=== PATIENT | male | born 1950 | race Caucasian/White ===

== ENCOUNTER → 2023-09-03 06:21 | Day surgery (SDC) | payer MEDICARE, OTHER, SELFPAY | LOC: GI 06:21 | PROVIDERS: ATTENDING PHYSICIAN Surgery; FAMILY PHYSICIAN Family Medicine | DX: Z12.11 Encounter for screening for malignant neoplasm of colon (principal); Z86.010 Personal history of colon polyps; D12.0 Benign neoplasm of cecum; K64.9 Unspecified hemorrhoids | CPT/HCPCS: 45380; 88305 ==

== ENCOUNTER 2023-09-05 14:49 | Outpatient (RCR) | payer MEDICARE, OTHER, SELFPAY | END 2023-09-05 23:59 | disposition home or self-care (01) | LOC: RPT 14:49 | PROVIDERS: ATTENDING PHYSICIAN Specialist; FAMILY PHYSICIAN Family Medicine | DX: C61 Malignant neoplasm of prostate (principal); M62.89 Other specified disorders of muscle; K59.00 Constipation, unspecified; Z73.6 Limitation of activities due to disability | CPT/HCPCS: 97162; 97530 ==

== ENCOUNTER 2023-09-11 09:39 | Inpatient (IN) | payer MEDICARE, OTHER, SELFPAY ==
[2023-09-08 09:00] VITALS: BMI 27.0
[2023-09-08 09:51] LABS: Hematocrit 40.2 % (39.0-52.0); Hemoglobin 13.2 g/dL (13.0-18.0); Mean Corp Hgb Conc. 32.8 g/dL (33.0-37.0); Mean Corpuscular Volume 97.3 fL (80.0-94.0); Mean Platelet Volume 9.7 fL (7.4-10.4); Platelet Count 203 10^3/uL (130-400); Red Blood Cell Count 4.13 10^6/uL (4.70-6.10); Red Cell Dist. Width 13.9 % (11.5-14.5); White Blood Cell Count 4.8 10^3/uL (4.8-10.8)
[2023-09-08 09:52] LABS: Urine Albumin Negative (Neg - Trace); Urine Bilirubin Negative (Negative); Urine Character Clear (Clear); Urine Color Yellow; Urine Glucose Negative (Negative); Urine Ketone Negative (Negative); Urine Leukocyte Trace (Negative); Urine Nitrite Negative (Negative); Urine Occult Blood Negative (Negative); Urine Specific Gravity 1.015 (<1.030); Urine Urobilinogen Negative (Neg - 1+); Urine pH 6.5 (5.0-9.0)
[2023-09-08 10:16] LABS: INR 1.03; PT 13.3 Sec (11.4-14.6)
[2023-09-08 10:17] LABS: APTT 28.8 Sec (23.4-35.0)
[2023-09-08 10:23] LABS: Urine Mucus Few
[2023-09-08 10:24] LABS: Urine Squamous Cell 0-2 /LPF (Few)
[2023-09-08 10:25] LABS: Urine Red Blood Cell 0-2 /HPF (0-2)
[2023-09-08 11:36] LABS: Blood Urea Nitrogen 13 mg/dl (9-20); Calcium 9.4 mg/dl (8.4-10.2); Carbon Dioxide 25 mmol/L (22-30); Chloride 105 mmol/L (98-107); Estimated Creatinine Clearance 75 ml/min; Glucose 103 mg/dl (70-99); Potassium 4.2 mmol/L (3.5-5.1); Sodium 139 mmol/L (135-145); eGFR > 60.00
[2023-09-11] VITALS (22 sets, daily range): BP systolic 95–152; BP diastolic 47–98; BMI 27.0
[2023-09-11] MEDS: NORMOSOL-R 1000 IV ×2 (10:07→16:00)
[2023-09-11] MEDS: NEBCIN 480 MG/100 ML ENEMA 1 BOTTLE RECTAL (10:07)
--- NOTE | 2023-09-11 13:34 | W.IMMPOSTOP ---
Surgical Immed Post Op Note
-
Primary Surgeon: Devante
Assisting Surgeon: Rex
Pre-op Diagnosis: Prostate cancer
Post-op Diagnosis: Same
Procedure Performed: Radical perineal prostatectomy
Anesthesia Type: GET
Specimen / Cultures: Prostate with seminal vesicles, bladder neck and urethral margins
Estimated Blood Loss: 100 ml
Complications: None
--- NOTE | 2023-09-11 13:36 | W.IMMPOSTOP ---
Surgical Immed Post Op Note
-
Primary Surgeon:
Assisting Surgeon:
Pre-op Diagnosis:
Post-op Diagnosis:
Procedure Performed:
Anesthesia Type:
Specimen / Cultures:
Estimated Blood Loss:
Complications:
Operative Findings:
[2023-09-11 14:31] LABS: Hematocrit 37.1 % (39.0-52.0); Hemoglobin 12.2 g/dL (13.0-18.0)
[2023-09-11] MEDS: TORADOL 15 MG IV ×2 (14:43→22:26)
[2023-09-11 14:44] LABS: Blood Urea Nitrogen 14 mg/dl (9-20); Calcium 8.5 mg/dl (8.4-10.2); Carbon Dioxide 26 mmol/L (22-30); Chloride 105 mmol/L (98-107); Estimated Creatinine Clearance 68 ml/min; Glucose 136 mg/dl (70-99); Potassium 4.2 mmol/L (3.5-5.1); Sodium 134 mmol/L (135-145); eGFR > 60.00
[2023-09-11] MEDS: DILAUDID 0.25 MG IV ×2 (15:18→17:19)
[2023-09-11] MEDS: FIBERCON PO (22:18)
[2023-09-11] MEDS: LIPITOR 10 MG PO (22:24)
[2023-09-11] MEDS: NEURONTIN PO (22:24)
[2023-09-11] MEDS: COLACE PO (22:24)
[2023-09-11] MEDS: NEURONTIN 300 MG PO (22:24)
[2023-09-11] MEDS: PROTONIX 40 MG PO (22:25)
[2023-09-11] MEDS: POLYSPORIN OINTMENT 1 APPLIC TOPICAL (22:26)
[2023-09-11] MEDS: BENICAR 10 MG PO (22:30)
[2023-09-12] MEDS: NORMOSOL-R 1000 IV (01:31)
[2023-09-12 03:30] VITALS: BP 120/65
[2023-09-12] MEDS: TORADOL 15 MG IV ×4 (03:32→21:06)
[2023-09-12 06:32] LABS: Hematocrit 35.3 % (39.0-52.0); Hemoglobin 11.5 g/dL (13.0-18.0); Mean Corp Hgb Conc. 32.6 g/dL (33.0-37.0); Mean Corpuscular Hgb 31.4 pg (27.0-31.0); Mean Corpuscular Volume 96.4 fL (80.0-94.0); Mean Platelet Volume 9.8 fL (7.4-10.4); Platelet Count 193 10^3/uL (130-400); Red Blood Cell Count 3.66 10^6/uL (4.70-6.10); Red Cell Dist. Width 13.4 % (11.5-14.5); White Blood Cell Count 8.6 10^3/uL (4.8-10.8)
[2023-09-12 07:00] VITALS: BP 137/76
[2023-09-12 07:00] LABS: Blood Urea Nitrogen 20 mg/dl (9-20); Calcium 8.4 mg/dl (8.4-10.2); Carbon Dioxide 27 mmol/L (22-30); Chloride 106 mmol/L (98-107); Estimated Creatinine Clearance 52 ml/min; Glucose 95 mg/dl (70-99); Potassium 3.8 mmol/L (3.5-5.1); Sodium 135 mmol/L (135-145); eGFR 58.73
[2023-09-12 07:40] LABS: Hepatitis C Antibody Negative (Negative)
[2023-09-12] MEDS: PROTONIX 40 MG PO ×2 (08:29→21:04)
[2023-09-12] MEDS: NEURONTIN 300 MG PO ×4 (08:30→21:04)
[2023-09-12] MEDS: POLYSPORIN OINTMENT 1 APPLIC TOPICAL ×2 (08:31→21:06)
--- NOTE | 2023-09-12 09:00 | W.PN.UPDATE ---
Update Note
Progress Note Update
Stable 1 day s/p radical perineal prostatectomy
Tolerating diet
BM and flatus
Labs good
Incision clean
---
Anticipate discharge tomorrow
[2023-09-12] MEDS: TYLENOL 650 MG PO ×3 (09:13→17:49)
[2023-09-12] MEDS: COLACE PO ×3 (09:16→15:38)
[2023-09-12] MEDS: FIBERCON PO (09:16)
[2023-09-12 11:00] VITALS: BP 123/62
--- NOTE | 2023-09-12 12:21 | CM ---
Reviewed the chart notes and spoke with the patient at the bedside. The patient resides with his spouse in a two story home with one step down to enter. The patient reports no DME/VN/SNF. The patient confirmed his pharmacy of choice is the [facility] Her[facility]. The patient has been ordered VN. Discussed area VN agencies. Patient selected VN. Referral sent in [facility]. CM continues to be available to patient/family and is monitoring medical plan for needs at discharge.
Plan: Discharge to home with VN services.
[2023-09-12 15:00] VITALS: BP 102/51
[2023-09-12] MEDS: PAXIL 30 MG PO (15:38)
--- NOTE | 2023-09-12 15:49 | PTCARENOTE ---
Patients clint drain fell out when patient was going to the bathroom. Dr. Low made aware. Also inquired about Carbamazepine (patients on med). Dr. Low said patient can resume when he gets home. Patient made aware.
[2023-09-12] MEDS: BENICAR 10 MG PO (21:04)
[2023-09-12] MEDS: FIBERCON 1250 MG PO (21:05)
[2023-09-12] MEDS: LIPITOR 10 MG PO (21:05)
[2023-09-12 23:30] VITALS: BP 136/61
[2023-09-13 07:30] VITALS: BP 138/71
[2023-09-13] MEDS: PROTONIX 40 MG PO (08:02)
[2023-09-13] MEDS: NEURONTIN 300 MG PO (08:02)
[2023-09-13] MEDS: TYLENOL 650 MG PO (08:02)
[2023-09-13] MEDS: PAXIL 30 MG PO (08:03)
[2023-09-13] MEDS: COLACE 100 MG PO (08:03)
[2023-09-13] MEDS: POLYSPORIN OINTMENT 1 APPLIC TOPICAL (08:03)
[2023-09-13] MEDS: FIBERCON 1250 MG PO (08:03)
--- NOTE | 2023-09-13 11:04 | W.DCSUMMARY ---
Discharge Summary
Discharge Data
Date of Admission: 09/11/23
Date of Discharge: 09/13/23
-
Pending Results: Yes (pathology report)
Hospital Course
the pt has clinically localized prostate cancer he underent an uneventful radicalperineal prostatecmy He remained stable and ischeduled for d/c today
Discharge Plan
-
Patient Disposition: Home with Home Care
Discharge Diagnosis/Procedures: Prostate cancer
Condition: Good
Diet: No restrictions
Activity: No strenuous activity
Additional Activity: for 1 week
Driving Restrictions: No driving for 1 week
Bathing Restrictions: Shower off after each BM x 5 days
Other Services: VN
Wound Care: VN to remove Pan catheter around 10 am 09/22/23
Referrals:
Ester Trujillo DO [Family Provider] -
Vinay Low MD [Active] - (Call now to schedule office visit with Dr. Low' nurse around 3:30pm 09/22/23 to check voiding)
Prescriptions:
New
amoxicillin-pot clavulanate 875-125 mg tablet
1 tab PO BID 7 Days Qty: 14 0RF
Continued
paroxetine HCl 30 MG tablet
30 mg PO DAILY
simvastatin 20 MG tablet
20 mg PO HS
ferrous sulfate [Iron (ferrous sulfate)] 325 MG tablet
325 mg PO BID
Fiber Therapy (m-cellulose) 500 MG tablet
2 tab PO BID
gabapentin 300 MG capsule
300 mg PO QID
omeprazole 20 MG capsule,delayed release(DR/EC)
20 mg PO BID
olmesartan [Benicar] 5 MG tablet
10 mg PO HS
acetaminophen [Tylenol Ex Str Arthritis Pain] 500 mg Tablet
500 mg PO Q6H PRN (Reason: arthritis)
docusate sodium 100 mg Capsule
400 mg PO BID
carbamazepine 300 mg Capsule, Er Multiphase 12 Hr
300 mg PO TID
polyethylene glycol 3350 [Miralax] 17 gram Powder In Packet
17 g PO PRN PRN (Reason: constipation)
Discontinued
finasteride 5 MG tablet
5 mg PO DAILY
alfuzosin 10 MG tablet extended release 24 hr
10 mg PO HS
Discharge Orders:
Discharge Patient (As Directed); Ordered 09/13/23
Ordered By: Bebeto Mckinney
Discharge Date and Time
Print Language: SRI LANKAN
--- NOTE | 2023-09-13 13:23 | CM ---
Patient with Dx prostate CA who is s/p Radical perineal prostatectomy. Pan in place.
Spoke with patient who was preparing for discharge. The patient says he feels ready to go home today. There is a scanned IMM in chart from 09/12/23. The patient agrees to [facility] follow up at home. His will provide transport home.
Message to Maria Victoria Rhodes, [facility] Liaison re; d/c today.
Plan home today with [facility].
--- NOTE | 2023-09-16 11:14 | W.DS.TRANS ---
DC Summary - Supervisor Respiratory
-
Discharge Instructions:
Sleep Apnea Risk Intermediate
Discharge Diagnosis/Procedures Prostate cancer
Diet No restrictions
Activity No strenuous activity
Additional Activity for 1 week
Driving Restrictions No driving for 1 week
Bathing Restrictions Shower off after each BM x 5 days
Other Services VN
Wound Care VN to remove Pan catheter around 10 am 09/22/23
Instructions:
Stand-Alone Forms:
Changes to Home Medications: Yes
Discharge Medications:
DC Medications w/original date entered in [facility]
ferrous sulfate 325 mg (65 mg iron) tablet (Iron (ferrous sulfate)) 325 mg PO BID Supplement 03/20/20
gabapentin 300 mg capsule 300 mg PO QID Neurological Condition 03/20/20
methylcellulose (laxative) 500 mg tablet (Fiber Therapy (methylcellulose)) 2 tab PO BID Constipation 03/20/20
olmesartan 5 mg tablet (Benicar) 10 mg PO HS Blood pressure 03/20/20
omeprazole 20 mg capsule,delayed release 20 mg PO BID Gastrointestinal issue 03/20/20
paroxetine HCl 30 mg tablet 30 mg PO DAILY Mental Health/Anxiety 03/20/20
simvastatin 20 mg tablet 20 mg PO HS High cholesterol 03/20/20
acetaminophen 500 mg tablet 500 mg PO Q6H PRN arthritis 11/08/22
docusate sodium 100 mg capsule 400 mg PO BID Constipation 11/08/22
carbamazepine 300 mg capsule,extended release [id number] 300 mg PO TID Neurological Condition 09/05/23
polyethylene glycol 3350 17 gram oral powder packet (Miralax) 17 g PO PRN PRN constipation 09/05/23
amoxicillin 875 mg-potassium clavulanate 125 mg tablet 1 tab PO BID 7 days #14 tabs 09/12/23
Home Medication Changes
Pending Results: No
== END 2023-09-13 11:55 | disposition home health service (06) | DRG 708 ==
LOC: 2 SOUTH 09:39
PROVIDERS: ADMITTING PHYSICIAN Specialist; FAMILY PHYSICIAN Family Medicine
PROC: 0VT00ZZ Resection of Prostate, Open Approach (ICD-10-PCS; 2023-09-11)
PROC: 0VT30ZZ Resection of Bilateral Seminal Vesicles, Open Approach (ICD-10-PCS; 2023-09-11)
DX: C61 Malignant neoplasm of prostate (principal); N40.1 Benign prostatic hyperplasia with lower urinary tract symptoms
CPT/HCPCS: 88305; 88309; 36415; 80048; 81003; 81015; 85014; 85018; 85027; 85610; 85730; 86803; 86850; 86900; 86901; A4648

== ENCOUNTER 2023-11-06 14:11 | Outpatient (RCR) | payer MEDICARE, OTHER, SELFPAY | END 2023-11-06 23:59 | disposition home or self-care (01) | LOC: RPT 14:11 | PROVIDERS: ATTENDING PHYSICIAN Specialist; FAMILY PHYSICIAN Family Medicine | DX: K59.00 Constipation, unspecified (principal); N39.3 Stress incontinence (female) (male); Z73.6 Limitation of activities due to disability; Z85.46 Personal history of malignant neoplasm of prostate | CPT/HCPCS: 97164; 97530 ==

== ENCOUNTER 2023-11-26 14:07 | Outpatient (RCR) | payer MEDICARE, OTHER, SELFPAY | END 2023-11-26 23:59 | disposition home or self-care (01) | LOC: RPT 14:07 | PROVIDERS: ATTENDING PHYSICIAN Specialist; FAMILY PHYSICIAN Family Medicine | DX: K59.00 Constipation, unspecified (principal); N39.3 Stress incontinence (female) (male); Z73.6 Limitation of activities due to disability; M62.89 Other specified disorders of muscle; Z85.46 Personal history of malignant neoplasm of prostate; C61 Malignant neoplasm of prostate | CPT/HCPCS: 97112; 97530 ==

== ENCOUNTER 2024-03-04 12:59 | Outpatient (RCR) | payer MEDICARE, OTHER, SELFPAY | END 2024-03-04 23:59 | disposition home or self-care (01) | LOC: RPT 12:59 | PROVIDERS: ATTENDING PHYSICIAN Specialist; FAMILY PHYSICIAN Family Medicine | DX: K59.00 Constipation, unspecified (principal); N39.3 Stress incontinence (female) (male); Z73.6 Limitation of activities due to disability; Z85.46 Personal history of malignant neoplasm of prostate; M62.89 Other specified disorders of muscle; C61 Malignant neoplasm of prostate | CPT/HCPCS: 97530 ==

== ENCOUNTER → 2024-03-26 19:09 | Outpatient (REF) | payer MEDICARE, OTHER, SELFPAY | LOC: MRI 3T 19:09 | PROVIDERS: ATTENDING PHYSICIAN Physician Assistant Surgical | DX: M48.02 Spinal stenosis, cervical region (principal); Z98.1 Arthrodesis status; M54.12 Radiculopathy, cervical region | CPT/HCPCS: 72141 ==

== ENCOUNTER 2024-03-30 11:00 | Outpatient (RCR) | payer MEDICARE, OTHER, SELFPAY | END 2024-03-30 23:59 | disposition home or self-care (01) | LOC: RPT 11:00 | PROVIDERS: ATTENDING PHYSICIAN Psychiatry & Neurology Neurology; FAMILY PHYSICIAN Family Medicine | DX: M79.12 Myalgia of auxiliary muscles, head and neck (principal); Z73.6 Limitation of activities due to disability; M43.22 Fusion of spine, cervical region; Z98.1 Arthrodesis status | CPT/HCPCS: 97010; 97110; 97112; 97140; 97162 ==

== ENCOUNTER 2024-04-16 12:57 | Outpatient (RCR) | payer MEDICARE, OTHER, SELFPAY | END 2024-04-29 23:59 | disposition home or self-care (01) | LOC: RPT 12:57 | PROVIDERS: ATTENDING PHYSICIAN Psychiatry & Neurology Neurology; FAMILY PHYSICIAN Family Medicine | DX: M79.12 Myalgia of auxiliary muscles, head and neck (principal); Z73.6 Limitation of activities due to disability; M43.22 Fusion of spine, cervical region; Z98.1 Arthrodesis status | CPT/HCPCS: 97010; 97140 ==

== ENCOUNTER → 2024-04-28 19:33 | Outpatient (REF) | payer MEDICARE, OTHER, SELFPAY | LOC: MRI 19:33 | PROVIDERS: ATTENDING PHYSICIAN Nurse Practitioner Family; FAMILY PHYSICIAN Family Medicine; REFERRING PHYSICIAN Specialist | DX: G50.0 Trigeminal neuralgia (principal) | CPT/HCPCS: 70553; A9575 ==

== ENCOUNTER 2024-04-29 11:54 | Outpatient (RCR) | payer MEDICARE, OTHER, SELFPAY | END 2024-05-06 11:54 | disposition home or self-care (01) | LOC: RPT 11:54 | PROVIDERS: ATTENDING PHYSICIAN Specialist; FAMILY PHYSICIAN Family Medicine | DX: K59.00 Constipation, unspecified (principal); N39.3 Stress incontinence (female) (male); Z73.6 Limitation of activities due to disability; Z85.46 Personal history of malignant neoplasm of prostate | CPT/HCPCS: 97530 ==

== ENCOUNTER 2024-10-25 05:56 | Day surgery (SDC) | payer MEDICARE, OTHER, SELFPAY ==
--- NOTE | 2024-10-08 14:05 | CM ---
CM left message.
--- NOTE | 2024-10-11 12:00 | VNURNOTE ---
Patient is scheduled for an elective L TKA on 10/25 - he is a same day patient with Dr Berrios. Spoke with patient prior to surgery. Introduced role of [facility] Liaison. Patient reports that he lives with his .
There are steps to enter and a flight of steps to the second floor.
He has crutches, a cane and rolling walker.
PCP is Dr Ester Trujillo
Discussed [facility] joint protocol and post surgical plans.
Reviewed that he will have VN services initially and will then start outpatient PT.
Patient selects [facility] for his home care needs and will go to [facility] in [place] for outpatient PT. Scheduled for November 02.
Patient is in agreement with plan and states that his will be home with him. Advised to bring RW with him day of surgery. Referral placed in [facility].
Plan: [facility] per [facility] joint protocol then outpt PT on 11/02
--- NOTE | 2024-10-11 12:02 | VNURNOTE ---
Patient is scheduled for an elective L TKA on 10/25 - he is a same day patient with Dr Berrios. Spoke with patient prior to surgery. Introduced role of [facility] Liaison. Patient reports that he lives with his and she will be available to assist him
post-op.
He has crutches, a cane and rolling walker.
PCP is Dr Ester Trujillo
Discussed [facility] joint protocol and post surgical plans.
Reviewed that he will have VN services initially and will then start outpatient PT.
Patient selects [facility] for his home care needs and will go to [facility] in [place] for outpatient PT. Scheduled for November 02.
Patient is in agreement with plan and states that his will be home with him. Advised to bring RW with him day of surgery. Referral placed in [facility].
Plan: [facility] per [facility] joint protocol 10/25 then outpt PT on 11/02
[2024-10-13 13:58] VITALS: BMI 27.6
[2024-10-13 13:59] LABS: Hematocrit 42.2 % (39.0-52.0); Hemoglobin 14.3 g/dL (13.0-18.0); Mean Corp Hgb Conc. 33.9 g/dL (33.0-37.0); Mean Corpuscular Hgb 31.3 pg (27.0-31.0); Mean Corpuscular Volume 92.3 fL (80.0-94.0); Mean Platelet Volume 9.7 fL (7.4-10.4); Platelet Count 231 10^3/uL (130-400); Red Blood Cell Count 4.57 10^6/uL (4.70-6.10); Red Cell Dist. Width 13.7 % (11.5-14.5); White Blood Cell Count 7.1 10^3/uL (4.8-10.8)
[2024-10-13 15:28] LABS: ALT (SGPT) 34 U/L (0-50); AST (SGOT) 43 U/L (17-59); Albumin 4.7 g/dl (3.5-5.0); Alkaline Phosphatase 78 U/L (38-126); Blood Urea Nitrogen 20 mg/dl (9-20); Carbon Dioxide 33 mmol/L (22-30); Chloride 103 mmol/L (98-107); Estimated Creatinine Clearance 61 ml/min; Glucose 84 mg/dl (70-99); Potassium 4.1 mmol/L (3.5-5.1); Sodium 140 mmol/L (135-145); Total Bilirubin 0.5 mg/dl (0.2-1.3); Total Protein 7.3 g/dl (6.3-8.2); eGFR > 60.00
[2024-10-14 09:53] LABS: Glycohemoglobin (HgbA1c) 5.7 % (4.0-5.6)
[2024-10-19 09:14] VITALS: BMI 27.6
[2024-10-25] VITALS (11 sets, daily range): BP systolic 111–137; BP diastolic 62–86; PULSE 69; O2SAT 96
[2024-10-25] MEDS: CELEBREX 200 MG PO (06:25)
[2024-10-25] MEDS: TYLENOL 650 MG PO (06:25)
[2024-10-25] MEDS: NORMOSOL-R/PLASMALYTE-A 1000 IV (06:27)
[2024-10-25] MEDS: SUBLIMAZE 25 MCG IV (09:24)
[2024-10-25] MEDS: ANCEF 5 IV (10:57)
[2024-10-25] MEDS: ROXICODONE 5 MG PO (11:47)
== END 2024-10-25 12:11 | disposition home health service (06) ==
LOC: SDS 05:56
PROVIDERS: ATTENDING PHYSICIAN Specialist; FAMILY PHYSICIAN Family Medicine; OTHER PHYSICIAN Physician Assistant
DX: M17.12 Unilateral primary osteoarthritis, left knee (principal); M51.369 Other intervertebral disc degeneration, lumbar region without mention of lumbar back pain or lower extremity pain; D50.9 Iron deficiency anemia, unspecified
CPT/HCPCS: 27447; 36415; 73560; 80053; 83036; 85027; 87070; 93005; 97116; 97162; C1713; C1776

== ENCOUNTER → 2024-11-15 13:19 | Outpatient (REF) | payer MEDICARE, OTHER, SELFPAY ==
[2024-11-15 14:18] LABS: Hematocrit 38.9 % (39.0-52.0); Hemoglobin 12.5 g/dL (13.0-18.0); Mean Corp Hgb Conc. 32.1 g/dL (33.0-37.0); Mean Corpuscular Volume 95.1 fL (80.0-94.0); Nucleated Red Blood Cells % 0 % (-); Platelet Count 317 10^3/uL (130-400); Red Cell Dist. Width 14.3 % (11.5-14.5)
[2024-11-15 14:48] LABS: ALT (SGPT) 24 U/L (0-50); AST (SGOT) 28 U/L (17-59); Albumin 4.6 g/dl (3.5-5.0); Alkaline Phosphatase 92 U/L (38-126); Blood Urea Nitrogen 30 mg/dl (9-20); Calcium 10.2 mg/dl (8.4-10.2); Carbon Dioxide 28 mmol/L (22-30); Chloride 103 mmol/L (98-107); Glucose 105 mg/dl (70-99); Potassium 3.9 mmol/L (3.5-5.1); Sodium 138 mmol/L (135-145); Total Protein 7.2 g/dl (6.3-8.2); eGFR 53.40
== END ==
LOC: RAD 13:19
PROVIDERS: ATTENDING PHYSICIAN Family Medicine
DX: R06.02 Shortness of breath (principal); Z96.652 Presence of left artificial knee joint; M79.662 Pain in left lower leg; R22.42 Localized swelling, mass and lump, left lower limb
CPT/HCPCS: 36415; 71275; 80053; 83880; 85025; 93005; 93971; Q9967

== ENCOUNTER → 2024-12-01 12:52 | Outpatient (REF) | payer MEDICARE, OTHER, SELFPAY | LOC: HWRCS 12:52 | PROVIDERS: ATTENDING PHYSICIAN Internal Medicine; FAMILY PHYSICIAN Family Medicine | DX: R06.09 Other forms of dyspnea (principal) | CPT/HCPCS: 93306 ==

== ENCOUNTER → 2024-12-07 11:24 | Outpatient (REF) | payer MEDICARE, OTHER, SELFPAY | LOC: RCS 11:24 | PROVIDERS: ATTENDING PHYSICIAN Internal Medicine; FAMILY PHYSICIAN Family Medicine | DX: R06.09 Other forms of dyspnea (principal) | CPT/HCPCS: 78452; 93017; A9500; J2785 ==